=== PATIENT | female | born 1995 ===

== ENCOUNTER 2017-02-09 21:13 | Observation (INO) | payer SELFPAY ==
[2017-02-09 22:50] LABS: BASO # 0.1 K/uL (0.0-0.2); BASO % 0.7 % (0.0-2.0); EOS # 0.1 K/uL (0.0-0.7); EOS % 0.6 % (0.0-4.0); HEMATOCRIT 40.5 % (34.0-47.0); LYMPH # 2.5 K/uL (1.0-4.3); LYMPH % 23.5 % (20.0-40.0); MEAN CELL VOLUME 89.6 fl (81.0-99.0); MEAN CORPUSCULAR HEMOGLOBIN 30.1 pg (27.0-31.0); MEAN CORPUSCULAR HGB CONC 33.6 g/dL (33.0-37.0); MEAN PLATELET VOLUME 9.7 fl (7.2-11.7); MONO # 0.8 K/uL (0.0-0.8); MONO % 7.2 % (0.0-10.0); NEUT # 7.2 K/uL (1.8-7.0); NRBC % 0.1 % (0.0-0.0); RED CELL DISTRIBUTION WIDTH 14.1 % (11.5-14.5); WHITE BLOOD COUNT 10.7 K/uL (4.8-10.8)
[2017-02-09 22:55] LABS: RBC URINE 3 /hpf (0-3); URINE BACTERIA RARE (<OCC); URINE BILIRUBIN NEGATIVE (NEGATIVE); URINE BLOOD NEGATIVE (NEGATIVE); URINE COLOR YELLOW (YELLOW); URINE GLUCOSE (UA) NEG (Normal); URINE KETONE TRACE mg/dL (NEGATIVE); URINE LEUKOCYTE ESTERASE NEG Leu/uL (Negative); URINE PROTEIN 30 mg/dL (NEGATIVE); URINE UROBILINOGEN 0.2-1.0 mg/dL (0.2-1.0); WBC URINE 4 /hpf (0-5)
[2017-02-09 23:01] LABS: ALCOHOL SERUM < 10 mg/dl (0-10); BLOOD UREA NITROGEN 14 mg/dl (7-17); CALCIUM 9.5 mg/dL (8.4-10.2); CARBON DIOXIDE 24 mmol/L (22-30); CHLORIDE 102 mmol/L (98-107); GFR AFRICAN-AMERICAN > 60; GLUCOSE,RANDOM 88 mg/dL (65-105); POTASSIUM 3.8 MMOL/L (3.6-5.0); SODIUM 142 mmol/l (132-148)
--- NOTE | 2017-02-09 23:44 | ED PDOC ---
HPI: Psych/Substance Abuse Time Seen by Provider: 02/09/17 21:31 Chief Complaint (Nursing): Psychiatric Evaluation Chief Complaint (Provider): anxiety History Per: Patient, Family History/Exam Limitations: no limitations Onset/Duration Of Symptoms: Hrs Current Symptoms Are (Timing): Still Present Additional Complaint(s): 21yo female presents to the ED, with mother, for evaluation of anxiety. Mother reports patient has been off her medications and running away. Patient does not endorse SI or HI. Past Medical History Reviewed: Historical Data, Nursing Documentation, Vital Signs Vital Signs: Last Vital Signs Temp 98.0 F 02/09/17 21:29 Pulse 83 02/09/17 21:29 Resp 16 02/09/17 21:29 BP 119/78 02/09/17 21:29 Pulse Ox 100 02/09/17 21:29 - Medical History PMH: Anxiety Denies: Diabetes, Hepatitis, HIV, HTN, Seizures, Sexually Transmitted Disease - Surgical History Surgical History: No Surg Hx - Family History Family History: States: No Known Family Hx - Allergies Allergies/Adverse Reactions: Allergies Allergy/AdvReac Type Severity Reaction Status Date / Time pollen extracts Allergy RASH Verified 02/09/17 21:25 bees Allergy RASH Uncoded 02/09/17 21:25 Review of Systems ROS Statement: Except As Marked, All Systems Reviewed And Found Negative Psych: Positive for: Anxiety, Other (no HI ). Negative for: Suicidal ideation Physical Exam - Reviewed Nursing Documentation Reviewed: Yes Vital Signs Reviewed: Yes - Physical Exam Appears: Positive for: Well, No Acute Distress Head Exam: Positive for: ATRAUMATIC, NORMAL INSPECTION, NORMOCEPHALIC Skin: Positive for: Normal Color, Warm, Dry Eye Exam: Positive for: Normal appearance, EOMI, PERRL ENT: Positive for: Normal ENT Inspection Neck: Positive for: Normal, Painless ROM, Supple Cardiovascular/Chest: Positive for: Regular Rate, Rhythm. Negative for: Murmur , Tachycardia Respiratory: Positive for: Normal Breath Sounds. Negative for: Wheezing, Respiratory Distress Gastrointestinal/Abdominal: Positive for: Normal Exam, Bowel Sounds, Soft. Negative for: Tenderness Back: Positive for: Normal Inspection. Negative for: L CVA Tenderness, R CVA Tenderness Extremity: Positive for: Normal ROM. Negative for: Deformity, Swelling Neurologic/Psych: Positive for: Alert, Oriented, Mood/Affect (very anxious ) - Laboratory Results Result Diagrams: 02/09/17 22:45 02/09/17 22:45 - ECG O2 Sat by Pulse Oximetry: 100 Pulse Ox Interpretation: Normal (RA) Medical Decision Making Medical Decision Makin: Impression: schizophrenia, anxiety Plan: Labs EKG CXR crisis eval 1:1 obs ED obs reassess Patient medically cleared for psych admission. P[place] [facility] [place]. Patient s/o to Dr. Mendoza at 0700 pending [facility] screening. Scribe Attestation: Documented by Mickey Menezes acting as a scribe for Tavon Davila MD. Provider Scribe Attestation: All medical record entries made by the Scribe were at my direction and personally dictated by me. I have reviewed the chart and agree that the record accurately reflects my personal performance of the history, physical exam, medical decision making, and the department course for this patient. I have also personally directed, reviewed, and agree with the discharge instructions and disposition. ED OBSERVATION Date of observation admission: 02/09/17 Time of observation admission: 21:34 - Observation admission statement Patient is being placed in observation because:: crisis Disposition - Clinical Impression Clinical Impression: Schizophrenia - Patient ED Disposition Is Patient to be Admitted: Transfer of Care - Disposition Disposition: Transfer of Care Disposition Time: 07:00 Condition: STABLE Patient Signed Over To: Julianna Mendoza Handoff Comments: pending [facility] [place]
--- NOTE | 2017-02-10 07:13 | ED PDOC ---
- Laboratory Results Result Diagrams: 02/09/17 22:45 02/09/17 22:45 - ECG O2 Sat by Pulse Oximetry: 100 Medical Decision Making Medical Decision Makin:00 Patient signed out to me by Dr. Davila. Pending [facility] Evaluation. Patient is medically cleared prior to my shift. 12:56 Patient accepted by [facility] for committment. Patient transferred Disposition - Clinical Impression Clinical Impression: Schizophrenia - POA Present On Arrival: None - Disposition Disposition: Discharged to [facility] Disposition Time: 12:56 Condition: STABLE
--- NOTE | 2017-02-10 10:35 | RAD ---
HISTORY: r/o pna COMPARISON: No prior. FINDINGS: LUNGS: No active pulmonary disease. PLEURA: No significant pleural effusion identified, no pneumothorax apparent. CARDIOVASCULAR: Normal. OSSEOUS STRUCTURES: No significant abnormalities. VISUALIZED UPPER ABDOMEN: Normal. OTHER FINDINGS: None. IMPRESSION: No active disease.
[2017-02-10 10:51] VITALS: TEMP 98.7
[2017-02-10 13:25] VITALS: BP 127/73; PULSE 97; RESP 20; O2SAT 98
--- NOTE | 2017-02-10 14:06 | CP.PCM.CON ---
History of Present Illness - History of Present Illness History of Present Illness: Psychiatry consult CC: "I don't know." HPI: Patient is a poor historian, stated she does not know why she is in the hospital, that she has no psychiatric history or psychiatric treatment, denied depression/anxiety/hallucinations/elana/paranoia to personal lines underwriter. She denies drug/ etoh use. History had to be obtained from the chart: 21 year old female brought in by PD secondary to her family filing a missing person report. As per Pt she is unsure of why she is here. Pt is very guarded and presents with thought blockage. Pt is unable to elaborate on responses and constantly changes her answers. Pt appears to be superficially cooperative with this personal lines underwriter. She denies any psych hx or tx and reports she saw a therapist once but forgot her name. Pt denies suicidal/homicidal ideations and reports it "scares" her to think about that. Pt denies a/v/h, however, Pt appears to be internally preoccupied as evidenced by her staring into corners of the wall. Pt is unable to recall her whereabouts for the last several weeks. At this time, Pt appears to be in acute psychiatric distress. As per Pts mother JOSLYN Scales [phone], Pt has been missing for two weeks. She reports she tried to drop her off at [facility] and after that Pt went missing. As per mother, Pt has a hx of involuntary admissions to [facility] and possibly [facility]. She reports she belives Pt has not not been on medication or received tx in approximately two years. She reports Pt had a room in her home but completely destroyed it and threw everything out. She reports Pt barely has any clothing left. Pts mother also reports that she had to tell Pt to leave and get tx because she was becoming very aggressive and erratic towards family members and she was especially concerned about Pt hurting her younger brothers. As per mother, Pt has been wandering around in [place] and [facility]. Pts mother reports that Pt also kicked out a window in her home. She states that Pt had a suitcase but she lost it because she had to "run" when she believed a man was following her. She states Pt has also been reaching out to random people on the internet and meeting with them. At this time, Pts mother believes Pt is a danger to her self and believes she requires admission for stabilization. She reports most recently, Pt has been staying with an old boss. As per Pts old boss's , Sue [phone], Pt went to her and asked him for a job. The day after, she returned again wearing the same clothes and presenting as erratic so they took her into their home in order to try and help her. Sue reports that Pt was very bizarre and erratic in the home. She reports Pt began turning all of the picture frames in her home and taking down her mirrors stating that "my left handed eye affects the way I see things". She also reports Pt became aggressive and would slam the computer and things. Sue reports that the entire house would smell like gas when she came in at times and one day she came in and the house smelled like fire. She reports she then found that Pt was burning pages from a notebook stating that she did not want people to see what she read. She reports that one day she brought Pt a salad and she was eating it with her fingers. She reports when they went out in public Pt would be very paranoid and act bizarre around people and have to go back home. She also states that Pt never slept and she often times found Pt talking to herself. Sue is extremely worried about Pt and believes she needs help. PPHx: As per her mother, Pt has been hospitalized multiple times. Pt has been hospitalized in [facility] in the [place]. Last admission was in [place] 2 years ago. PMHx: Patient denies MSE: A + O x 3, good eye contact, guarded during interview, with some thought blocking. Denies hallucinations/paranoia/SI/HI. Poor I/J. Mood "okay". Affect - irritable/labile. Impression: 21 yo female w/ history of multiple psychiatric admissions, w/ likely schizophrenia vs schizoaffective disorder, patient [place] [facility] [place]. -P[place] [facility] [place] Past Patient History - Past Social History Smoking Status: Heavy Smoker > 10 Cigarettes Daily - CARDIAC Hx Hypertension: No - PULMONARY Hx Tuberculosis: No - NEUROLOGICAL Hx Seizures: No - HEMATOLOGICAL/ONCOLOGICAL Hx Human Immunodeficiency Virus (HIV): No - GENITOURINARY/GYNECOLOGICAL Hx Sexually Transmitted Disorders: No - PSYCHIATRIC Hx Anxiety: Yes - ANESTHESIA Hx Anesthesia: No Meds Allergies/Adverse Reactions: Allergies Allergy/AdvReac Type Severity Reaction Status Date / Time pollen extracts Allergy RASH Verified 02/09/17 21:25 bees Allergy RASH Uncoded 02/09/17 21:25 Results - Vital Signs Recent Vital Signs: Last Vital Signs Temp 98.7 F 02/10/17 13:20 Pulse 97 H 02/10/17 13:20 Resp 20 02/10/17 13:20 BP 127/73 02/10/17 13:20 Pulse Ox 98 02/10/17 13:20 - Labs Result Diagrams: 02/09/17 22:45 02/09/17 22:45 Labs: Laboratory Results - last 24 hr 02/09/17 22:45 WBC 10.7 RBC 4.53 Hgb 13.6 Hct 40.5 MCV 89.6 MCH 30.1 MCHC 33.6 RDW 14.1 Plt Count 265 MPV 9.7 Neut % (Auto) 68.0 Lymph % (Auto) 23.5 [place] % (Auto) 7.2 Eos % (Auto) 0.6 Baso % (Auto) 0.7 Neut # 7.2 H Lymph # 2.5 [place] # 0.8 Eos # 0.1 Baso # 0.1 Sodium 142 Potassium 3.8 Chloride 102 Carbon Dioxide 24 Anion Gap 20 BUN 14 Creatinine 0.6 L Est GFR ( Amer) > 60 Est GFR (Non-Af Amer) > 60 Random Glucose 88 Calcium 9.5 Urine Color Yellow Urine Clarity Slighty-cloudy Urine pH 5.0 Ur Specific [place] 1.031 H Urine Protein 30 Urine Glucose (UA) Neg Urine Ketones Trace Urine Blood Negative Urine Nitrate Negative Urine Bilirubin Negative Urine Urobilinogen 0.2-1.0 Ur Leukocyte Esterase Neg Urine RBC (Auto) 3 Urine Microscopic WBC 4 Ur Squamous Epith Cells 6 H Urine Bacteria Rare Hyaline Casts 0-2 Salicylates < 1.0 Urine Opiates Screen Negative Urine Methadone Screen Negative Acetaminophen < 10.0 L Ur Barbiturates Screen Negative Ur Phencyclidine Scrn Negative Ur Amphetamines Screen Negative U Benzodiazepines Scrn Negative U Oth Cocaine Metabols Negative U Cannabinoids Screen Negative Alcohol, Quantitative < 10
--- NOTE | 2017-02-11 18:16 | CARD ---
APPROVED REPORT EKG Measurement Heart [id number] <Conclusion> Normal sinus rhythm Normal ECG
== END 2017-02-10 13:46 | disposition short-term general hospital (02) ==
LOC: EDBD 21:13 → H.ER 21:13 → H.EROBSV 21:34
PROVIDERS: ADMIT Emergency Medicine; ATTEND Emergency Medicine
DX: F20.9 Schizophrenia, unspecified (principal); Z87.891 Personal history of nicotine dependence; Z00.8 Encounter for other general examination
CPT/HCPCS: 36415; 71010; 80048; 81003; 81025; 85025; 93005; 99282; G0378; G0480